=== PATIENT | female | born 1995 | race Two or more races ===

== ENCOUNTER → 2025-03-07 06:21 | Outpatient (CLI) | payer OTHER ==
[2025-03-07 07:02] LABS: BASO % 0.4 % (0.1-1.2); EOS # 0.11 (0.04-0.54); EOS % 1.6 % (0.7-7.0); LYMPH # 2.69 (1.18-3.74); LYMPH % 38.4 % (19.3-53.1); MEAN PLATELET VOLUME 9.20 fl (9.4-12.4); MONO # 0.57 (0.24-0.82); MONO % 8.1 % (4.7-12.5); NEUT # 3.58 (1.56-6.13); NEUT % 51.1 % (34.0-71.1); RED CELL DISTRIBUTION WIDTH 13.1 % (11.6-14.4)
[2025-03-07 07:37] LABS: URINE APPEARANCE Clear; URINE BILIRRUBIN Negative (NEGATIVE); URINE BLOOD Negative; URINE COLOR Yellow; URINE GLUCOSE Negative (NEGATIVE); URINE KETONE Negative (NEGATIVE); URINE LEUKOCYTE Negative; URINE NITRATE Negative; URINE PROTEIN Negative (NEGATIVE); URINE UROBILINOGEN 0.2 E.U./dl
[2025-03-07 07:38] LABS: URINE BACTERIA 867.4 uL (0.0-1933); URINE EPITHELIAL CELLS 28.6 uL (0.0-38.8); URINE RBC 14.8 uL (0.0-20.8); URINE WBC 13.2 uL (0.0-23.2)
[2025-03-07 07:54] LABS: ALT/SGPT 15.0 U/L (12-78); AST/SGOT 10.0 U/L (15-37); BILIRUBIN TOTAL 0.23 mg/dL (0.3-1.2); BUN CREA RATIO 19.0 (7.0-25.0); CHOL HDL RATIO 2.6 (0-5.0); CREATININE SERUM 0.7 mg/dL (0.55-1.02); GFR 99.64; GLOBULINA 3.9 G/DL (2.4-3.5); GLUCOSE FASTING 86.0 mg/dL (65-100); HDL 62.0 mg/dl (40-60); LDL 88.0 mg/dl (0-130); OSMOLALITY SERUM 279.0 MOSM/KG (275-295); T4 FREE 0.79 NG/ML (0.76-1.46); TSH 3.33 uIU/mL (0.358-3.74); VLDL 10.0 (0-39)
[2025-03-07 08:03] LABS: URINE CAST 0.00 uL (0.0-1.40)
[2025-03-08 07:07] LABS: hav igm Negative (Negative); hep b c Negative (Negative); hep b s ag Negative (Negative)
[2025-03-08 23:07] LABS: chla t Negative (Negative); neiss Negative (Negative)
== END | disposition home or self-care (01) ==
LOC: LAB 06:21
DX: R07.2 Precordial pain (principal); Z13.0 Encounter for screening for diseases of the blood and blood-forming organs and certain disorders involving the immune mechanism; Z13.220 Encounter for screening for lipoid disorders; Z11.9 Encounter for screening for infectious and parasitic diseases, unspecified; Z13.29 Encounter for screening for other suspected endocrine disorder; Z13.21 Encounter for screening for nutritional disorder; Z12.11 Encounter for screening for malignant neoplasm of colon

== ENCOUNTER 2025-03-10 14:49 | Outpatient (CLI) | payer OTHER ==
[2025-03-10 15:45] LABS: ob NEGATIVE (NEGATIVE)
== END 2025-03-10 15:07 | disposition home or self-care (01) ==
LOC: LAB 14:49
DX: Z13.0 Encounter for screening for diseases of the blood and blood-forming organs and certain disorders involving the immune mechanism (principal); Z13.220 Encounter for screening for lipoid disorders; Z11.9 Encounter for screening for infectious and parasitic diseases, unspecified; Z13.29 Encounter for screening for other suspected endocrine disorder; Z13.21 Encounter for screening for nutritional disorder; Z12.11 Encounter for screening for malignant neoplasm of colon; Z11.3 Encounter for screening for infections with a predominantly sexual mode of transmission; Z13.1 Encounter for screening for diabetes mellitus

== ENCOUNTER 2025-04-21 13:35 | Outpatient (CLI) | payer OTHER | END 2025-04-21 13:45 | disposition home or self-care (01) | LOC: PPH VACUNA 13:35 | PROVIDERS: ATTEND Emergency Medicine Pediatric Emergency Medicine | DX: Z23 Encounter for immunization (principal) ==